=== PATIENT | male | born 1960 | race Caucasian/White ===

== ENCOUNTER → 2017-02-22 | Outpatient (CLI) | payer BC | LOC: LAB 17:00 | PROVIDERS: ATTEND Physician Assistant | DX: R50.9 Fever, unspecified (principal) | CPT/HCPCS: 36415; 87040 ==

== ENCOUNTER → 2017-11-23 | Outpatient (CLI) | payer BC ==
[2017-11-23 10:23] LABS: ANION GAP 9 (5-19); BLOOD UREA NITROGEN 19 mg/dL (7-20); CALCIUM 9.8 mg/dL (8.4-10.2); CARBON DIOXIDE 29 mmol/L (22-30); CHLORIDE 104 mmol/L (98-107); CHOLESTEROL 135.85 mg/dL (0-200); GLUCOSE 101 mg/dL (75-110); POTASSIUM 4.4 mmol/L (3.6-5.0); SODIUM 142.4 mmol/L (137-145); TRIGLYCERIDES 70 mg/dL (<150)
[2017-11-23 10:34] LABS: DIRECT LDL 77 mg/dL (<100)
== END ==
LOC: OD 09:01
PROVIDERS: ATTEND Internal Medicine Cardiovascular Disease
DX: E78.00 Pure hypercholesterolemia, unspecified (principal); E03.9 Hypothyroidism, unspecified; I10 Essential (primary) hypertension
CPT/HCPCS: 36415; 80048; 80061; 84443